=== PATIENT | male | born 1960 | race Caucasian/White ===

== ENCOUNTER 2018-06-02 10:13 | Inpatient (IN) | payer OTHER, MEDICARE ==
[~2018-06-02] VITALS: Ht 170.2 cm; Wt 94.4 kg
[~2018-06-02 10:13] MED LIST: GLUCOPHAGE500 M1 PO; JANUVIA100 MG PO; LISINOPRIL5 MG PO; METFORMIN500 MG PO; PREDNISONE10 MG PO; ZITHROMAX250 MG PO
[2018-06-02 10:18] VITALS: BP 141/87
[2018-06-02 11:04] LABS: HEMATOCRIT 49.2 % (42.0-52.0); HEMOGLOBIN 17.9 g/dl (14.0-18.0); MEAN CELL VOLUME 89.3 fl (80.0-94.0); MEAN CORPUSCULAR HGB 32.5 pg (27.0-31.0); MEAN CORPUSCULAR HGB CONC 36.4 g/dl (33.0-37.0); MEAN PLATELET VOLUME 9.8 fl (9.6-12.3); PLATELET COUNT AUTOMATED 270 10*3/uL (130-400); RED BLOOD COUNT 5.51 10*6/uL (4.50-5.90); WHITE BLOOD COUNT 17.4 10*3/uL (4.8-10.8)
[2018-06-02 11:12] LABS: BILIRUBIN NEGATIVE (NEGATIVE); BLOOD NEGATIVE (NEGATIVE); CLARITY SL CLOUDY (CLEAR); COLOR YELLOW (YELLOW); GLUCOSE 2+ (NEGATIVE); KETONE TRACE (NEGATIVE); LEUKO ESTERASE NEGATIVE (NEGATIVE); NITRITE NEGATIVE (NEGATIVE); PH 5.5 (5.0-9.0); SPECIFIC GRAVITY >= 1.030 (1.005-1.030); UROBILINOGEN 0.2 E.U./dl (0.2-1.0)
[2018-06-02 11:17] LABS: ACT PARTIAL THROMBO TIME 19.4 SECONDS (20.8-31.5)
[2018-06-02 11:20] LABS: ALBUMIN 4.1 gm/dl (3.1-4.5); CREATININE 1.85 mg/dL (0.70-1.30); TOTAL PROTEIN 7.8 gm/dL (6.4-8.2)
[2018-06-02 11:24] LABS: BASOPHILS 1 % (0-1); PLATELET SUFFICIENCY NORMAL (NORMAL); TOTAL CELLS COUNTED 100 #CELLS
[2018-06-02 11:25] LABS: POLYCHROMASIA SLIGHT; VACUOLATION OF NEUTROPHILS SLIGHT
[2018-06-02 11:25] LABS: BACTERIA 2+; MUCOUS 3+
[2018-06-02] MEDS ORDERED: METFORMIN HYDR500 MG PO (12:01)
[2018-06-02] MEDS ORDERED: GLIPIZIDE5 MG PO (12:02)
[2018-06-02 12:04] VITALS: BP 129/81
[2018-06-02 13:26] VITALS: BP 99/56
[2018-06-02 15:00] VITALS: BP 100/56
[2018-06-02 16:00] VITALS: BP 124/76
[2018-06-02 20:00] VITALS: BP 106/64
[2018-06-03] VITALS: BP 90/80
[2018-06-03 06:52] LABS: ALBUMIN 2.7 gm/dl (3.1-4.5); BUN 34 mg/dl (7-24); CHLORIDE 107 mmol/L (98-107); CHOLESTEROL 99 mg/dL (<200); CREATININE 1.28 mg/dL (0.70-1.30); HDL CHOLESTEROL 19 mg/dl (40-60); PHOSPHOROUS 2.2 mg/dL (2.5-4.9); POTASSIUM 3.8 mmol/L (3.5-5.1); SGPT/ALT 91 U/L (12-78); SODIUM 141 mmol/L (136-145)
[2018-06-03 07:00] LABS: ALKALINE PHOSPHATASE 41 U/L (45-117); LDL CHOLESTEROL 60 mg/dL (9-159); SGOT/AST 44 IU/L (3-35); THYROID STIM HORMONE (HS) 0.518 uIU/ml (0.358-4.75); TOTAL PROTEIN 5.2 gm/dL (6.4-8.2); TRIGLYCERIDES 101 mg/dl (<150); VLDL CHOLESTEROL 20 mg/dL (6-40)
[2018-06-03 07:57] LABS: BASO % 0.5 % (0.0-1.0); EOS # 0.1 10*3/uL (0.0-0.4); EOS % 2.4 % (1.0-4.0); LYMPH # 0.8 10*3/uL (1.3-4.4); LYMPH % 14.4 % (27.0-41.0); MEAN CORPUSCULAR HGB 31.9 pg (27.0-31.0); MEAN CORPUSCULAR HGB CONC 33.9 g/dl (33.0-37.0); MONO # 0.5 10*3/uL (0.1-1.0); MONO % 8.1 % (3.0-9.0); NEUT # 4.3 10*3/uL (2.3-7.9); NEUT % 73.9 % (47.0-73.0); RED BLOOD COUNT 4.42 10*6/uL (4.50-5.90); WHITE BLOOD COUNT 5.8 10*3/uL (4.8-10.8)
[2018-06-03 08:14] LABS: HEMATOCRIT 41.6 % (42.0-52.0); HEMOGLOBIN 14.1 g/dl (14.0-18.0); MEAN CELL VOLUME 94.1 fl (80.0-94.0); PLATELET COUNT AUTOMATED 171 10*3/uL (130-400)
[2018-06-03 12:00] VITALS: BP 128/87
[2018-06-03 16:00] VITALS: BP 113/81
[2018-06-03 20:00] VITALS: BP 123/75
[2018-06-04] VITALS: BP 132/52
[2018-06-04 06:25] LABS: BASO % 0.4 % (0.0-1.0); EOS # 0.3 10*3/uL (0.0-0.4); EOS % 3.9 % (1.0-4.0); HEMOGLOBIN 14.4 g/dl (14.0-18.0); LYMPH % 28.8 % (27.0-41.0); MEAN CELL VOLUME 92.9 fl (80.0-94.0); MEAN CORPUSCULAR HGB 31.9 pg (27.0-31.0); MEAN CORPUSCULAR HGB CONC 34.3 g/dl (33.0-37.0); MONO # 0.8 10*3/uL (0.1-1.0); MONO % 12.2 % (3.0-9.0); NEUT # 3.7 10*3/uL (2.3-7.9); PLATELET COUNT AUTOMATED 172 10*3/uL (130-400); RED BLOOD COUNT 4.52 10*6/uL (4.50-5.90); RED CELL DISTRI WIDTH 13.4 % (0-14.5); WHITE BLOOD COUNT 6.9 10*3/uL (4.8-10.8)
[2018-06-04 06:37] LABS: CHLORIDE 110 mmol/L (98-107); SODIUM 141 mmol/L (136-145)
[2018-06-04 06:40] LABS: BUN 17 mg/dl (7-24)
[2018-06-04 12:00] VITALS: BP 128/77
[2018-06-04 16:00] VITALS: BP 128/69
[2018-06-04 20:00] VITALS: BP 143/86
[2018-06-05] VITALS: BP 154/79
[2018-06-05 06:18] LABS: BASO % 0.5 % (0.0-1.0); EOS # 0.4 10*3/uL (0.0-0.4); EOS % 6.6 % (1.0-4.0); HEMATOCRIT 39.7 % (42.0-52.0); LYMPH # 2.2 10*3/uL (1.3-4.4); LYMPH % 37.9 % (27.0-41.0); MEAN CELL VOLUME 90.4 fl (80.0-94.0); MEAN CORPUSCULAR HGB 31.9 pg (27.0-31.0); MEAN CORPUSCULAR HGB CONC 35.3 g/dl (33.0-37.0); MEAN PLATELET VOLUME 9.8 fl (9.6-12.3); MONO # 0.7 10*3/uL (0.1-1.0); MONO % 11.1 % (3.0-9.0); NEUT # 2.6 10*3/uL (2.3-7.9); NEUT % 43.4 % (47.0-73.0); PLATELET COUNT AUTOMATED 178 10*3/uL (130-400); RED BLOOD COUNT 4.39 10*6/uL (4.50-5.90); WHITE BLOOD COUNT 5.9 10*3/uL (4.8-10.8)
[2018-06-05 06:47] LABS: ALBUMIN 3.1 gm/dl (3.1-4.5); ALKALINE PHOSPHATASE 48 U/L (45-117); BUN 14 mg/dl (7-24); CHLORIDE 108 mmol/L (98-107); CREATININE 0.94 mg/dL (0.70-1.30); PHOSPHOROUS 2.5 mg/dL (2.5-4.9); POTASSIUM 3.6 mmol/L (3.5-5.1); SGOT/AST 37 IU/L (3-35); SGPT/ALT 104 U/L (12-78); SODIUM 141 mmol/L (136-145); TOTAL PROTEIN 6.1 gm/dL (6.4-8.2)
[2018-06-05 08:00] VITALS: BP 126/85
[2018-06-05] MEDS ORDERED: PHENERGAN25 M3 PO (11:25)
== END 2018-06-05 12:35 | disposition home or self-care (01) | DRG 872 ==
LOC: ED 10:13 → EDHOLD 14:20 → 4E 14:20
PROVIDERS: Family Medicine; Internal Medicine; Nurse Practitioner Family; ADMIT Internal Medicine
DX: A41.9 Sepsis, unspecified organism (principal); N17.9 Acute kidney failure, unspecified; R65.20 Severe sepsis without septic shock; K52.9 Noninfective gastroenteritis and colitis, unspecified; R82.71 Bacteriuria; I10 Essential (primary) hypertension; E78.5 Hyperlipidemia, unspecified; E83.51 Hypocalcemia; E11.65 Type 2 diabetes mellitus with hyperglycemia; R79.82 Elevated C-reactive protein (CRP); R74.0 Nonspecific elevation of levels of transaminase and lactic acid dehydrogenase [LDH]; Z72.0 Tobacco use; Z71.6 Tobacco abuse counseling; Z82.5 Family history of asthma and other chronic lower respiratory diseases; Z82.49 Family history of ischemic heart disease and other diseases of the circulatory system; Z79.899 Other long term (current) drug therapy; Z79.84 Long term (current) use of oral hypoglycemic drugs